=== PATIENT | female | born 1960 | race Caucasian/White ===

== ENCOUNTER 2017-01-15 17:58 | Outpatient (CLI) | payer OTHER ==
--- NOTE | 2017-01-15 22:53 | RAD ---
RIGHT HIP TWO VIEWS 01/15/17 No fracture or area of bony destruction was seen. The articular surfaces are smooth and the joint sp harjit is normal in width. IMPRESSION: No acute finding. POS: HOME
== END 2017-01-15 17:59 | disposition home or self-care (01) ==
LOC: BURRAD 17:58
PROVIDERS: ATTEND Family Medicine
DX: M25.551 Pain in right hip (principal)